=== PATIENT | male | born 1955 | race African-American/Black ===

== ENCOUNTER 2016-10-09 03:35 | Emergency (ER) | payer OTHER ==
[2016-10-09 05:02] LABS: ANION GAP 7.5 (7.0-16.0); BUN - UREA NITROGEN 18 mg/dL (7-25); CALCIUM SERUM 9.3 mg/dL (8.6-10.3); CARBON DIOXIDE 28.4 mEq/L (21.0-31.0); CHLORIDE 108 mEq/L (98-107); GLUCOSE 97 mg/dL (70-105); POTASSIUM SERUM 3.9 mEq/L (3.5-5.1); SODIUM SERUM 140 mEq/L (136-145)
--- NOTE | 2016-10-09 06:27 | ED Physician Chart ---
Chief Complaint/HPI - Patient Information Date Seen:: 10/09/16 Time Seen:: 04:35 Chief Complaint:: leg pain History of Present Illness:: The patient was brought in by emergency medical services for a complaint of bilateral foot and leg pain. The patient was initially encountered in an elevator [place] the [place] apparently spent the night as he did not have train fare to get home. When encountered by law enforcement he stated he had this medical problem but the details are unavailable. Patient states he has paranoid schizophrenia, and lives in a care facility in [place] but is somewhat elusive regarding his medical history. He denies any other acute symptomatology. Allergies:: Allergies Allergy/AdvReac Type Severity Reaction Status Date / Time No Known Allergies Allergy Verified 10/09/16 04:20 Vitals:: Vital Signs - 8 hr 10/09/16 10/09/16 10/09/16 04:07 05:13 06:06 Temp 97.6 F 98.0 F HR 65 78 68 RR 18 18 18 BP 144/81 129/69 140/78 O2 Sat % 100 98 100 Historian:: Patient, EMS Review:: Nurse's Note Reviewed Review of Systems - Review of Systems Cardio Vascular: No chest pain, No palpitations, edema Pulmonary: No SOB, No cough, No sputum GI: No vomiting, No diarrhea (the review of systems is otherwise negative except for those findings mentioned above and in the history of present illness) Psychiatric: Prior psych history, No suicidal ideation, No homicidal ideation, No auditory hallucination, No visual hallucination Other: Hernia, heart murmur, hypertension managed by diet alone Past Medical History - Past Medical History Obtainable: Yes Past Medical History: HTN Family History: HTN Social History: Smoker, Alcohol, No Drug Use, Care Facility Surgical History: None Psychiatricy History: Schizophrenia Medication: None Family Medical History - Family Member Mother Hx Family Hypertension: Yes Hx Family Psychiatric Problems: Yes Physical Exam - Physical Examination General/Constitutional: Awake, Well-developed, well-nourished, Alert, No distress, GCS 15, Non-toxic appearing, Ambulatory Other Gen/Cons comments:: He is cogent and able to carry on a conversation, he has intact long and short- term memory, he appears to be in no acute distress of any kind and has a ready smile. He has asked for blankets and sandwiches repeatedly, and was otherwise a gentleman until just after the blood draw when he became argumentative and temporarily belligerent with the club steward. Head: Atraumatic Eyes: Lids, conjuctiva normal, PERRL Other Eyes comments:: Right eye nystagmus Skin: Nl inspection, No skin lesions, Well hydrated ENMT: Nasal exam nl, Lips, teeth, gums nl, Oropharynx nl, Tonsils nl Neck: Full ROM w/o pain, No stridor Respiratory: Clear to Auscultation Cardio Vascular: RRR, NL S1 S2, Carotid/Femoral/Distal pulses equal bilaterally Other Cardio Vascular comments:: 2/6 soft holosystolic ejection murmur Extremities: No tenderness or effusion, Full ROM, normal strength in all extremities Other Extremities comments:: Trace to 1+ pitting edema just above the ankles bilaterally. The skin in this area appears to have some mild the stasis dermatitis changes. There is no skin breakdown or fluid leakage, nor does there appear to be any cellulitis. Neuro/Psych: Alert/oriented, DTR's symmetric, Normal motor strength, Judgement/ insight normal, Mood normal, Normal gait, No focal deficits Labs/Radiology/EKG Results - Lab Results Results: Laboratory Tests 10/09/16 10/09/16 04:29 04:29 Sodium 140 Potassium 3.9 Chloride 108 H Carbon Dioxide 28.4 Anion Gap 7.5 BUN 18 Creatinine 1.0 Est GFR ( Amer) > 60.0 Est GFR (Non-Af Amer) > 60.0 BUN/Creatinine Ratio 18.0 Glucose 97 Calcium 9.3 B-Natriuretic Peptide 19.1 Assessment - Assessment General Assessment: Medical decision making: Patient with bilateral lower leg edema and a heart murmur with other jenkins unremarkable history and physical for any catastrophic medical process. ED Septic Shock - . Is Septic Shock (SBP<90, OR Lactate>4 mmol\L) present?: No - <6hrs of presentation: Vital Signs: Vital Signs - 8 hr 10/09/16 10/09/16 10/09/16 04:07 05:13 06:06 Temp 97.6 F 98.0 F HR 65 78 68 RR 18 18 18 BP 144/81 129/69 140/78 O2 Sat % 100 98 100 Reassessment (Disposition) - Reassessment Reassessment Condition:: Unchanged - Aftercare/Follow up Instructions Aftercare/Follow-Up Instructions:: Counseled pt regarding lab results/diagnosis & need follow up, Refer to Discharge Instructions - Patient Disposition Discharge/Transfer:: Home ED Discharge Plan - Patient Disposition Admit/Discharge/Transfer: PT DISCHARGED HOME Condition at Disposition: Stable Instructions: Edema, Schizophrenia
== END 2016-10-09 06:30 | disposition home or self-care (01) ==
LOC: ER 03:35
DX: R60.0 Localized edema (principal); I10 Essential (primary) hypertension; F17.200 Nicotine dependence, unspecified, uncomplicated; F20.9 Schizophrenia, unspecified
CPT/HCPCS: 36415-UA; 80048-TC; 83880-TC; Z7502; Z7610